=== PATIENT | male | born 1970 | race Caucasian/White ===

== ENCOUNTER 2016-07-26 19:35 | Emergency (ER) | payer SELFPAY ==
[~2016-07-26] VITALS: Ht 182.9 cm; Wt 94.0 kg
[2016-07-26 21:32] VITALS: BP 131/73
== END 2016-07-26 22:21 | disposition home or self-care (01) ==
LOC: ER 20:00
DX: K02.9 Dental caries, unspecified (principal); H92.02 Otalgia, left ear; I10 Essential (primary) hypertension
CPT/HCPCS: 99283

== ENCOUNTER 2016-08-31 11:12 | Emergency (ER) | payer SELFPAY ==
[~2016-08-31] VITALS: Ht 182.9 cm; Wt 91.0 kg
[2016-08-31] MEDS ORDERED: KETOROLAC 60MG/2ML VIAL IM ONE (11:30)
[2016-08-31 12:40] VITALS: BP 133/80
== END 2016-08-31 12:52 | disposition home or self-care (01) ==
LOC: ER 11:44
DX: S30.1XXA Contusion of abdominal wall, initial encounter (principal); F17.210 Nicotine dependence, cigarettes, uncomplicated; Z98.890 Other specified postprocedural states; W51.XXXA Accidental striking against or bumped into by another person, initial encounter; Y93.68 Activity, volleyball (beach) (court); Y92.832 Beach as the place of occurrence of the external cause
CPT/HCPCS: 71100; 96372; 99284; J1885; Z7610

== ENCOUNTER 2017-08-23 04:40 | Emergency (ER) | payer SELFPAY ==
[~2017-08-23] VITALS: Ht 182.9 cm; Wt 93.0 kg
[2017-08-23 09:00] VITALS: BP 133/74
== END 2017-08-23 09:03 | disposition home or self-care (01) ==
LOC: ER 04:40
DX: K02.9 Dental caries, unspecified (principal); F17.200 Nicotine dependence, unspecified, uncomplicated
CPT/HCPCS: 99283

== ENCOUNTER 2018-09-05 05:00 | Emergency (ER) | payer SELFPAY ==
[~2018-09-05] VITALS: Ht 182.9 cm; Wt 92.0 kg
[2018-09-05 07:00] VITALS: BP 125/74
== END 2018-09-05 08:33 | disposition left against medical advice (07) ==
LOC: ER 05:00
DX: R68.83 Chills (without fever) (principal); Z53.21 Procedure and treatment not carried out due to patient leaving prior to being seen by health care provider

== ENCOUNTER 2019-07-22 14:31 | Emergency (ER) | payer MEDICAID ==
[~2019-07-22] VITALS: Ht 172.7 cm; Wt 92.0 kg
[2019-07-22 16:50] VITALS: BP 141/89
== END 2019-07-22 16:56 | disposition home or self-care (01) ==
LOC: ER 14:31
DX: R20.2 Paresthesia of skin (principal); F17.290 Nicotine dependence, other tobacco product, uncomplicated; Z98.890 Other specified postprocedural states
CPT/HCPCS: 71045; 93005; 99283

== ENCOUNTER 2020-01-28 03:08 | Emergency (ER) | payer SELFPAY ==
[~2020-01-28] VITALS: Ht 182.9 cm; Wt 93.8 kg
[2020-01-28 03:28] VITALS: BP 158/93
[2020-01-28] MEDS ORDERED: VISCOUS LIDOCAINE 2% 15 ML UDC MM PRN (04:00)
[2020-01-28] MEDS ORDERED: ACETAMINOPHEN 325MG TABLET PO ONE (04:00)
== END 2020-01-28 04:18 | disposition home or self-care (01) ==
LOC: ER 03:12
DX: J06.9 Acute upper respiratory infection, unspecified (principal)
CPT/HCPCS: 99282

== ENCOUNTER 2020-05-05 14:00 | Emergency (ER) | payer SELFPAY ==
[~2020-05-05] VITALS: Ht 172.7 cm; Wt 60.0 kg
[2020-05-05] MEDS ORDERED: AMOX-494 MT (16:08)
[2020-05-05 16:20] VITALS: BP 138/87
== END 2020-05-05 16:25 | disposition home or self-care (01) ==
LOC: ER 14:00
DX: H66.92 Otitis media, unspecified, left ear (principal)
CPT/HCPCS: 99283

== ENCOUNTER 2021-02-08 10:54 | Emergency (ER) | payer OTHER ==
[~2021-02-08] VITALS: Ht 182.9 cm; Wt 89.0 kg
[~2021-02-08 10:54] MED LIST: AMOX-494 MT
[2021-02-08] MEDS ORDERED: PREDNISONE 20MG TABLET PO ONE (11:15)
[2021-02-08] MEDS ORDERED: KETOROLAC 60MG/2ML VIAL IM ONE (11:15)
[2021-02-08 11:22] VITALS: BP 136/87
[2021-02-08] MEDS ORDERED: IBUP-2029 MT (11:29)
== END 2021-02-08 11:38 | disposition home or self-care (01) ==
LOC: ER 11:18
DX: M77.12 Lateral epicondylitis, left elbow (principal)
CPT/HCPCS: 93005; 96372; 99283; J1885; J7512